=== PATIENT | male | born 1975 | race Caucasian/White ===

== ENCOUNTER 2017-02-12 09:02 | Emergency (ER) | payer MEDICAID ==
[2017-02-12 09:36] LABS: Hematocrit 41.8 % (42.0-52.0); Mean Cell Volume 88.9 fl (78-100); Mean Corpuscular Hemoglobin 31.9 pg (27-31); Mean Corpuscular Hgb Conc 35.9 g/dl (32-36); Mean Platelet Volume 10.6 fl (6.0-9.5); Neutrophil # 10.9 K/mm3 (1.3-6.0); Neutrophil % 76.2 % (42-75.0); Platelet Count 452 K/mm3 (150-450); Red Cell Distribution Width 12.3 % (11.5-14.0); White Blood Count 14.3 K/mm3 (4.0-10.5)
[2017-02-12 09:37] LABS: Urine Bilirubin Negative (NEGATIVE); Urine Blood Negative /ul (NEGATIVE); Urine Ketone Negative (NEGATIVE); Urine Nitrite Negative (NEGATIVE); Urine Protein Negative (NEGATIVE); Urine Specific Gravity 1.015 SP.GR. (1.005-1.030); Urine Urobilinogen Normal (NORMAL); Urine pH 7.5 pH (5.0-7.0)
--- NOTE | 2017-02-12 09:41 | ERNOTE ---
Psychological HPI - Date Date of Service: 02/12/17 - General Chief Complaint: Psychiatric Problem Source: Reports: patient Exam Limitations: Reports: no limitations - Immun/Allergies/Home Medications Allergies/Adverse Reactions: Allergies No Known Allergies Allergy (Verified 02/12/17 09:33) Home Medications: HOME MEDICATIONS Paxil 02/12/17 [Last Taken Unknown] Seroquel 02/12/17 [Last Taken Unknown] Trazodone HCl 02/12/17 [Last Taken Unknown] Vistaril 02/12/17 [Last Taken Unknown] - History of Present Illness Narrative: Patient presents to the ED for feeling depressed and having suicidal thoughts. He relates that Thursday he took a half bottle of pills that were prescription pills of a friend. He does not know what they were. Her states it only put him out for 24 hours but he woke up. He tells me he was seen at [facility] for 2 days after this and discharged. He relates still with SI. He denies repeat overdose since thursday. Still with active SI and placn. No physical complaints. No CP or SOB. No abdominal pain. No fever. Time Seen by Provider: 02/12/17 09:21 Onset/duration: Reports: constant Intent: Reports: suicide Associated Symptoms: Reports: depressed, suicidal thoughts, specific plan. Denies: hostile, hallucinating Prior Treament: Reports: recently seen Review of Systems - Review of Systems Constitutional: Absent: fever Respiratory: Absent: shortness of breath Cardiology: Absent: chest pain Gastrointestinal/Abdominal: Absent: abdominal pain Genitourinary: Absent: dysuria Skin: Absent: rash Neurological: Present: depressed. Absent: weakness Psych: Present: See HPI All Other Systems: All systems neg except as marked - Patient's Past Medical History Patient History - Cardiac/Respiratory: Pneumonia Patient History - Surgical Procedures: Hernia Repair - Social History Living Situations: home Abuse History: Hx of Substance Use Psych History: Psychiatric Hx, Hx of Depression, Hx of Suicide Attempt, Hx of Psychiatric Tx, Current tx/ever been on anti-depressants or anti-anxiety meds Smoking Status: Current every day smoker Have you smoked in the past 12 months: Yes Do you dip or chew tobacco: No Alcohol Use: none Drug Use: cocaine - Immunizations Immunizations Up to Date: Yes Hx Pneumococcal Vaccination: No History of Influenza Vaccine: No Psychological Exam - Exam General Appearance: Present: alert, no apparent distress Head Exam: Present: normal inspection, no evidence of injury Neurological: Present: alert, 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 Absent: good eye contact Eye Exam: Normal inspection: bilateral, PERRL: bilateral Ears, Nose, Throat: Present: normal ENT inspection Neck: Present: normal inspection, nontender Respiratory: Present: no respiratory distress, normal breath sounds, no accessory muscle use, lungs clear Cardiovascular/Chest: Present: regular rate, rhythm, normal peripheral pulses Gastrointestinal/Abdominal: Present: normal bowel sounds, nontender, soft. Absent: tenderness Back Exam: Present: normal range of motion Extremity Exam: Present: normal inspection, no edema Skin Exam: Present: normal color, warm/dry ED Progress - Results and Orders Patient's Lab Results:: I have reviewed the patient's lab results. - Vital Signs Patient's Vital Signs:: I have reviewed the patient's vital signs. Vital Signs: Vital Signs 02/12/17 09:29 Temperature 36.6 C Pulse Rate 98 Respiratory 18 Rate Blood Pressure 133/91 O2 Sat by Pulse 95 Oximetry - EKG EKG: NSR EKG read: Interp. by me EKG Comments: NSR rate 72. No evidence of STEMI. - Progress/Reassessment Chief Complaint: Psychiatric Problem Progress Note-Subjective: 02/12/17 17:23 Nursing arranged transfer with accepting physician not requesting doctor to doctor. Formal transfer paperwork filled out. Patient currently medically stable for transfer to psych unit. 02/12/17 17:25 Patient voluntary and agreeable. Departure Clinical Impression: Suicidal ideation, Depression, UTI (urinary tract infection) - Departure Disposition: Other health care facility Condition: Stable
[2017-02-12 09:46] LABS: Urine Appearance Cloudy; Urine Bacteria 2+; Urine Color Dark Yellow; Urine RBC None Seen /hpf (0-5)
[2017-02-12 09:54] LABS: Urine Barbiturate Negative (NEGATIVE); Urine Benzodiazepines Negative (NEGATIVE); Urine Opiates Negative (NEGATIVE); Urine PCP Negative (NEGATIVE); Urine THC Negative (NEGATIVE)
[2017-02-12 09:58] LABS: ALT 33 U/L (19-67); AST 14 U/L (0-48); Albumin * 3.9 gm/dl (3.4-5.0); Alkaline Phosphatase * 113 U/L (50-170); Anion Gap 17.7 mmol/L (6.8-13.8); BUN/Creatinine Ratio 15.9 (9.0-21.6); Bilirubin, Total 0.8 mg/dL (0.0-1.1); Blood Urea Nitrogen 14 mg/dL (6-23); Ca. Corrected For Albumin 9.1 mg/dL (8.4-10.2); Calcium * 9.3 mg/dL (7.9-10.9); Chloride 102 mmol/L (97-106); Glucose * 106 mg/dL (70-110); Potassium 3.7 mmol/L (3.4-4.6); Salicylate Less than 2.8 mg/dL (2.8-20.0); Sodium 138 mmol/L (132-142); Total Protein 8.6 gm/dL (6.2-8.2)
[2017-02-12 09:58] LABS: Cocaine Ur Positive (NEGATIVE)
[2017-02-12] MEDS ORDERED: CEFUROXIME AXETIL 500 MG TABLET PO ONE (09:58)
[2017-02-12] MEDS ORDERED: CEFUROXIME AXETIL 500 MG TABLET ONE (10:27)
[2017-02-12] MEDS ORDERED: ACETAMINOPHEN 500 MG TABLET PO ONE (10:31)
[2017-02-12] MEDS ORDERED: hydrOXYzine PAMOATE 25 MG CAPSULE ONE (12:16)
[2017-02-12] MEDS ORDERED: hydrOXYzine PAMOATE 25 MG CAPSULE PO ONE ×2 (12:16→17:21)
[2017-02-12 19:54] VITALS: BP 125/69
== END 2017-02-12 18:55 | disposition short-term general hospital (02) ==
LOC: ER 09:02
DX: R45.851 Suicidal ideations (principal); F32.9 Major depressive disorder, single episode, unspecified; N39.0 Urinary tract infection, site not specified; F17.200 Nicotine dependence, unspecified, uncomplicated
CPT/HCPCS: 36415; 80053; 80307; 81001; 84443; 85025; 87086; 93005; 99285; G0480; G0481

== ENCOUNTER 2017-02-19 20:48 | Emergency (ER) | payer MEDICAID ==
[2017-02-19] MEDS ORDERED: hydrOXYzine PAMOATE 25 MG CAPSULE PO ONE (21:48)
[2017-02-19] MEDS ORDERED: hydrOXYzine PAMOATE 25 MG CAPSULE ONE (21:48)
--- NOTE | 2017-02-19 21:55 | ERNOTE ---
Psychological HPI - General Chief Complaint: Psychiatric Problem Source: Reports: patient Exam Limitations: Reports: no limitations - Immun/Allergies/Home Medications Allergies/Adverse Reactions: Allergies No Known Allergies Allergy (Verified 02/12/17 09:33) Home Medications: HOME MEDICATIONS Paxil 02/12/17 [Last Taken Unknown] Seroquel 02/12/17 [Last Taken Unknown] Trazodone HCl 02/12/17 [Last Taken Unknown] Vistaril 02/12/17 [Last Taken Unknown] Venlafaxine HCl [Effexor] 75 mg PO DAILY 02/19/17 [Last Taken Unknown] - History of Present Illness Narrative: Pt states he was transferred to a psych facility in [place] 3 days ago and was released. He states that he tried taking a handful of pills last time and was feeling like he wanted to do that today. He states that on the way to the hospital (walking) he thought about stepping in front of a car. Time Seen by Provider: 02/19/17 21:49 Onset/duration: Reports: constant Intent: Reports: suicide, prior thoughts of suicide Associated Symptoms: Reports: frustrated, made attempt Prior Treament: Reports: recently hospitalized Review of Systems - Review of Systems Constitutional: Absent: recent illness EYE: Absent: vision changes ENT: Present: no symptoms reported Respiratory: Absent: shortness of breath Cardiology: Absent: chest pain Gastrointestinal/Abdominal: Absent: nausea, vomiting Genitourinary: Present: no symptoms reported Musculoskeletal: Present: muscle stiffness Skin: Absent: rash Neurological: Absent: weakness, numbness Endocrine: Absent: excessive sweating Hematologic/Lymphatic: Present: no symptoms reported Psych: Present: See HPI, anxiety, depressed - Patient's Past Medical History Patient History - Medical: Anxiety, Depression Patient History - Cardiac/Respiratory: No pertinent hx, Pneumonia Patient History - Surgical Procedures: Hernia Repair - Social History Abuse History: Hx of Substance Use Psych History: Psychiatric Hx, Hx of Depression, Hx of Suicide Attempt, Hx of Psychiatric Tx, Current tx/ever been on anti-depressants or anti-anxiety meds Smoking Status: Current every day smoker - Immunizations Immunizations Up to Date: Yes Hx Pneumococcal Vaccination: No History of Influenza Vaccine: Yes Psychological Exam - Exam General Appearance: Present: alert, moderate distress, anxious, irritable Head Exam: Present: normal inspection, no evidence of injury Neurological: Present: alert, 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, agitated Thoughts/Hallucinations: Present: no apparent hallucination, obsessive Behavior/Eye Contact/Speech: Present: increased rate of speech Eye Exam: Normal inspection: bilateral, PERRL: bilateral, EOMI: bilateral Neck: Present: normal inspection, nontender, supple Respiratory: Present: no respiratory distress, normal breath sounds, no accessory muscle use, chest nontender, lungs clear Cardiovascular/Chest: Present: regular rate, rhythm, no murmur, normal peripheral pulses Gastrointestinal/Abdominal: Present: normal bowel sounds, nontender Back Exam: Present: normal inspection, normal range of motion Extremity Exam: Present: normal inspection, normal range of motion, no edema Skin Exam: Present: normal color, warm/dry, no cyanosis Lymphatic Exam: Present: no adenopathy ED Progress - Results and Orders Patient's Lab Results:: I have reviewed the patient's lab results. Results and Orders: Laboratory Tests 02/19/17 02/19/17 02/19/17 21:00 21:00 23:05 WBC 10.3 Hgb 14.1 Hct 40.8 L Plt Count 285 Sodium Potassium Chloride Carbon Dioxide Anion Gap BUN Creatinine Random Glucose Calcium Total Bilirubin AST ALT Alkaline Phosphatase Total Protein Albumin TSH Urine Color Yellow Urine Appearance Clear Urine pH 6.0 Ur Specific [place] >=1.030 Urine Protein 15 H Urine Glucose (UA) Negative Urine Ketones Negative Urine Blood 25 H Urine Nitrate Negative Urine Bilirubin 1 H Urine Ictotest Negative Prot Sulfosalicylic Acd Negative Urine Urobilinogen Normal Ur Leukocyte Esterase Negative Urine RBC 10-25 H Urine WBC None seen Ur Epithelial Cells >25 H Calcium Oxalate Crystal Few - 1+ H Urine Bacteria 1+ H Urine Culture Comments No culture indicated Salicylates Urine Opiates Screen Negative Acetaminophen Barbiturate Screen Negative Ur Phencyclidine Scrn Negative Urine Amphetamine Negative U Benzodiazepines Scrn Negative Urine Cocaine Screen Positive H Urine Marijuana (THC) Negative Ethyl Alcohol 02/19/17 23:05 WBC Hgb Hct Plt Count Sodium 142 Potassium 3.6 Chloride 103 Carbon Dioxide 25.8 Anion Gap 16.8 H BUN 14 Creatinine 0.88 Random Glucose 94 Calcium 9.2 Total Bilirubin 0.7 AST 16 ALT 35 Alkaline Phosphatase 98 Total Protein 7.8 Albumin 3.9 TSH 1.420 Urine Color Urine Appearance Urine pH Ur Specific [place] Urine Protein Urine Glucose (UA) Urine Ketones Urine Blood Urine Nitrate Urine Bilirubin Urine Ictotest Prot Sulfosalicylic Acd Urine Urobilinogen Ur Leukocyte Esterase Urine RBC Urine WBC Ur Epithelial Cells Calcium Oxalate Crystal Urine Bacteria Urine Culture Comments Salicylates Less than 2.8 L Urine Opiates Screen Acetaminophen Less than 0.2 L Barbiturate Screen Ur Phencyclidine Scrn Urine Amphetamine U Benzodiazepines Scrn Urine Cocaine Screen Urine Marijuana (THC) Ethyl Alcohol Less than 3.0 - Vital Signs Patient's Vital Signs:: I have reviewed the patient's vital signs. Vital Signs: Vital Signs 02/19/17 20:53 Temperature 36.7 C Pulse Rate 100 Respiratory 18 Rate Blood Pressure 140/85 O2 Sat by Pulse 99 Oximetry - EKG EKG: NSR EKG read: Interp. by me - Progress/Reassessment Chief Complaint: Psychiatric Problem Progress:: Improved Progress Note-Subjective: 02/20/17 07:47 Pt has been accepted to [facility]. Waiting for transportation. Pt slept most of the night and only had a few requests for food. Not as irritable as upon admission. Departure Clinical Impression: Suicidal ideation Depression Qualifiers: Depression Type: major depressive disorder Major depression recurrence: recurrent Active/Remission status: currently active Major depression episode severity: moderate Qualified Code(s): F33.1 - Major depressive disorder, recurrent, moderate - Departure Disposition: Other health care facility Condition: Fair
[2017-02-19 22:10] VITALS: BP 93/64
[2017-02-19] MEDS ORDERED: traZODone HCL 50 MG TABLET PO ONE (22:30)
[2017-02-19 23:08] LABS: Hematocrit 40.8 % (42.0-52.0); Hemoglobin 14.1 gm/dL (13.5-18.0); Mean Cell Volume 89.5 fl (78-100); Mean Corpuscular Hemoglobin 30.9 pg (27-31); Mean Corpuscular Hgb Conc 34.6 g/dl (32-36); Mean Platelet Volume 11.4 fl (6.0-9.5); Neutrophil # 5.1 K/mm3 (1.3-6.0); Neutrophil % 49.3 % (42-75.0); Platelet Count 285 K/mm3 (150-450); Red Blood Count 4.56 M/mm3 (4.7-6.0); Red Cell Distribution Width 12.6 % (11.5-14.0); White Blood Count 10.3 K/mm3 (4.0-10.5)
[2017-02-19 23:17] LABS: Urine Bilirubin 1 mg/dl (NEGATIVE); Urine Blood 25 /ul (NEGATIVE); Urine Ketone Negative (NEGATIVE); Urine Nitrite Negative (NEGATIVE); Urine Protein 15 mg/dL (NEGATIVE); Urine Specific Gravity >=1.030 SP.GR. (1.005-1.030); Urine Urobilinogen Normal (NORMAL)
[2017-02-19 23:27] LABS: Urine Appearance Clear; Urine Bacteria 1+; Urine Color Yellow; Urine WBC None Seen /hpf (0-5)
[2017-02-19 23:30] LABS: ALT 35 U/L (19-67); AST 16 U/L (0-48); Albumin * 3.9 gm/dl (3.4-5.0); Alkaline Phosphatase * 98 U/L (50-170); Anion Gap 16.8 mmol/L (6.8-13.8); BUN/Creatinine Ratio 15.9 (9.0-21.6); Bilirubin, Total 0.7 mg/dL (0.0-1.1); Blood Urea Nitrogen 14 mg/dL (6-23); Calcium * 9.2 mg/dL (7.9-10.9); Carbon Dioxide 25.8 mmol/L (24-32.6); Chloride 103 mmol/L (97-106); Glucose * 94 mg/dL (70-110); Potassium 3.6 mmol/L (3.4-4.6); Salicylate Less than 2.8 mg/dL (2.8-20.0); Sodium 142 mmol/L (132-142); Total Protein 7.8 gm/dL (6.2-8.2)
[2017-02-19 23:32] LABS: Urine Barbiturate Negative (NEGATIVE); Urine Benzodiazepines Negative (NEGATIVE); Urine Opiates Negative (NEGATIVE); Urine PCP Negative (NEGATIVE); Urine THC Negative (NEGATIVE)
[2017-02-19 23:33] LABS: Cocaine Ur Positive (NEGATIVE)
== END 2017-02-20 10:15 | disposition short-term general hospital (02) ==
LOC: ER 20:48
DX: R45.851 Suicidal ideations (principal); F33.1 Major depressive disorder, recurrent, moderate; F17.200 Nicotine dependence, unspecified, uncomplicated
CPT/HCPCS: 36415; 80053; 80307; 81001; 84443; 85025; 93005; 99285; G0480; G0481

== ENCOUNTER 2017-03-03 18:30 | Emergency (ER) | payer MEDICAID ==
--- NOTE | 2017-03-03 19:19 | ERNOTE ---
<Kana Alexander - Last Filed: 03/03/17 19:44> Psychological HPI - General Chief Complaint: Psychiatric Problem Source: Reports: patient Exam Limitations: Reports: no limitations - Immun/Allergies/Home Medications Allergies/Adverse Reactions: Allergies No Known Allergies Allergy (Verified 03/03/17 19:02) Home Medications: HOME MEDICATIONS Paxil 25 mg PO DAILY 02/12/17 [Last Taken Unknown] Seroquel 100 mg PO HS 02/12/17 [Last Taken Unknown] Trazodone HCl 100 mg PO HS 02/12/17 [Last Taken Unknown] Vistaril 25 mg PO DAILY PRN 02/12/17 [Last Taken Unknown] Venlafaxine HCl [Effexor] 75 mg PO DAILY 02/19/17 [Last Taken Unknown] - History of Present Illness Narrative: Patient is somewhat cryptic about the exact stressors that are going on in his life, though he does state that he misses his , and he admits to trying to step in front of a car tonight while he was leaving the restaurant in [place]. He still states that he is both depressed and suicidal at this juncture and admits to having relapsed back on to cocaine approximately 4 days ago. Time Seen by Provider: 03/03/17 19:02 Arrived by: Reports: private car Onset/duration: Reports: intermittent Intent: Reports: suicide, prior thoughts of suicide Mechanism: Reports: other - step in front of a moving vehicle Situational Problems: Reports: spouse Associated Symptoms: Reports: suicidal thoughts, specific plan Prior Treament: Reports: recently hospitalized Review of Systems - Review of Systems Constitutional: Present: See HPI EYE: Present: no symptoms reported ENT: Present: no symptoms reported Respiratory: Present: no symptoms reported Cardiology: Present: no symptoms reported Gastrointestinal/Abdominal: Present: no symptoms reported Genitourinary: Present: no symptoms reported Musculoskeletal: Present: no symptoms reported Skin: Present: no symptoms reported Neurological: Present: no symptoms reported Endocrine: Present: no symptoms reported Hematologic/Lymphatic: Present: no symptoms reported Psych: Present: depressed, emotional problems, other - still indicating suicidal ideation - Patient's Past Medical History Patient History - Medical: Anxiety, Depression, Other - previous hospitalization for suicidal ideation Patient History - Cardiac/Respiratory: Pneumonia Patient History - Cancer: No Hx of Cancer Patient History - Surgical Procedures: Other, Hernia Repair Patient History - Other: None - Social History Living Situations: home Abuse History: Hx of Substance Use - cocaine per the patient Psych History: Psychiatric Hx, Hx of Depression, Hx of Suicide Attempt, Hx of Psychiatric Tx, Current tx/ever been on anti-depressants or anti-anxiety meds Smoking Status: Current every day smoker Alcohol Use: none Drug Use: cocaine - Immunizations Immunizations Up to Date: Yes Hx Pneumococcal Vaccination: No History of Influenza Vaccine: No Psychological Exam - Exam General Appearance: Present: wd/wn, alert, moderate distress Head Exam: Present: normal inspection, no evidence of injury Neurological: Present: agitated Thoughts/Hallucinations: Present: obsessive Behavior/Eye Contact/Speech: Present: threatening eye contact, decreased rate of speech, belligerent ENT Exam normal except (see below): Yes Ears, Nose, Throat: Present: normal ENT inspection Neck: Present: normal inspection, nontender Respiratory: Present: no respiratory distress, normal breath sounds, no accessory muscle use, chest nontender, lungs clear Cardiovascular/Chest: Present: regular rate, rhythm, no murmur, normal peripheral pulses Gastrointestinal/Abdominal: Present: normal bowel sounds, nontender, nondistended, soft Rectal Exam: Present: deferred Male Genitals Exam: Present: deferred Back Exam: Present: normal inspection, normal range of motion Extremity Exam: Present: normal inspection, normal range of motion Skin Exam: Present: normal color, warm/dry ED Progress - Vital Signs Patient's Vital Signs:: I have reviewed the patient's vital signs. Vital Signs: Vital Signs 03/03/17 18:58 Temperature 36.8 C Pulse Rate 85 Respiratory 17 Rate Blood Pressure 110/70 O2 Sat by Pulse 98 Oximetry - Progress/Reassessment Chief Complaint: Psychiatric Problem - Transfer of Care Physician Sign Out: Kana Alexander Receiving Physician: Holly Goodrich Departure Clinical Impression: Suicidal ideation Depression Qualifiers: Depression Type: unspecified Qualified Code(s): F32.9 - Major depressive disorder, single episode, unspecified - Departure Disposition: Other health care facility Condition: Fair <Holly Goodrich - Last Filed: 03/04/17 03:32> ED Progress - Results and Orders Patient's Lab Results:: I have reviewed the patient's lab results. - Vital Signs Patient's Vital Signs:: I have reviewed the patient's vital signs. Vital Signs: Vital Signs 03/03/17 03/03/17 18:58 19:39 Temperature 36.8 C 36.8 C Pulse Rate 85 85 Respiratory 17 17 Rate Blood Pressure 110/70 110/70 O2 Sat by Pulse 98 98 Oximetry - EKG EKG: NSR, no ST T wave changes, unchanged from - 02/20/17, other - no acute changes EKG read: Interp. by me - Progress/Reassessment Progress Note-Subjective: 03/03/17 20:55 Patient resting calmly in bed, eating sandwich, states that he is still suicidal and would like to get admitted to a psychiatric hospital 03/04/17 02:44 [facility] in [place] has bed available, requesting doctor to doctor report, called number provided, connected with answering service, left call back number 03/04/17 03:28 called [facility] again, discussed with Dr Howard, accepted patient
[2017-03-03 19:28] LABS: Hematocrit 40.9 % (42.0-52.0); Hemoglobin 14.5 gm/dL (13.5-18.0); Mean Cell Volume 88.9 fl (78-100); Mean Corpuscular Hemoglobin 31.5 pg (27-31); Mean Corpuscular Hgb Conc 35.5 g/dl (32-36); Mean Platelet Volume 11.1 fl (6.0-9.5); Neutrophil # 6.5 K/mm3 (1.3-6.0); Neutrophil % 60.7 % (42-75.0); Platelet Count 295 K/mm3 (150-450); Red Cell Distribution Width 12.7 % (11.5-14.0); White Blood Count 10.6 K/mm3 (4.0-10.5)
[2017-03-03 19:41] LABS: ALT 36 U/L (19-67); AST 27 U/L (0-48); Albumin * 3.8 gm/dl (3.4-5.0); Alkaline Phosphatase * 87 U/L (50-170); Anion Gap 13.9 mmol/L (6.8-13.8); BUN/Creatinine Ratio 10.2 (9.0-21.6); Bilirubin, Total 0.8 mg/dL (0.0-1.1); Blood Urea Nitrogen 9 mg/dL (6-23); Ca. Corrected For Albumin 8.9 mg/dL (8.4-10.2); Calcium * 9.1 mg/dL (7.9-10.9); Carbon Dioxide 25.6 mmol/L (24-32.6); Chloride 103 mmol/L (97-106); Glucose * 89 mg/dL (70-110); Potassium 3.5 mmol/L (3.4-4.6); Salicylate Less than 2.8 mg/dL (2.8-20.0); Sodium 139 mmol/L (132-142)
[2017-03-03 20:51] LABS: Urine Bilirubin Negative (NEGATIVE); Urine Blood 25 /ul (NEGATIVE); Urine Ketone Negative (NEGATIVE); Urine Nitrite Negative (NEGATIVE); Urine Protein Negative (NEGATIVE); Urine Urobilinogen Normal (NORMAL)
[2017-03-03 21:07] LABS: Urine Appearance Cloudy; Urine Bacteria None Seen; Urine Color Orange; Urine RBC 0-5 /hpf (0-5); Urine WBC >50 /hpf (0-5)
[2017-03-03 21:15] LABS: Urine Barbiturate Negative (NEGATIVE); Urine Benzodiazepines Negative (NEGATIVE); Urine Opiates Negative (NEGATIVE); Urine PCP Negative (NEGATIVE); Urine THC Negative (NEGATIVE)
[2017-03-03 21:17] LABS: Cocaine Ur Positive (NEGATIVE)
[2017-03-03] MEDS ORDERED: QUEtiapine FUMARATE 100 MG TABLET ONE (22:41)
[2017-03-03] MEDS ORDERED: traZODone HCL 50 MG TABLET ONE (22:41)
[2017-03-03] MEDS ORDERED: QUEtiapine FUMARATE 100 MG TABLET PO SCH (23:00)
[2017-03-03] MEDS ORDERED: traZODone HCL 50 MG TABLET PO SCH (23:00)
[2017-03-04 03:50] VITALS: BP 99/71
== END 2017-03-04 04:30 | disposition short-term general hospital (02) ==
LOC: ER 18:30
DX: R45.851 Suicidal ideations (principal); F32.9 Major depressive disorder, single episode, unspecified; F17.200 Nicotine dependence, unspecified, uncomplicated
CPT/HCPCS: 36415; 80053; 80307; 81001; 85025; 87086; 93005; 99285; G0480; G0481

== ENCOUNTER 2017-03-12 00:10 | Emergency (ER) | payer MEDICAID ==
--- NOTE | 2017-03-12 00:55 | ERNOTE ---
Psychological HPI - General Chief Complaint: Psychiatric Problem Source: Reports: patient Exam Limitations: Reports: no limitations - Immun/Allergies/Home Medications Allergies/Adverse Reactions: Allergies No Known Allergies Allergy (Verified 03/12/17 00:30) Home Medications: HOME MEDICATIONS Paxil 25 mg PO DAILY 02/12/17 [Last Taken Unknown] Seroquel 100 mg PO HS 02/12/17 [Last Taken Unknown] Trazodone HCl 100 mg PO HS 02/12/17 [Last Taken Unknown] Vistaril 25 mg PO DAILY PRN 02/12/17 [Last Taken Unknown] Venlafaxine HCl [Effexor] 75 mg PO DAILY 02/19/17 [Last Taken Unknown] - History of Present Illness Narrative: Pt states he has been depressed for 2 months. I saw him and transferred him to an in patient psych facility approx 3 weeks ago. Pt states that on top of this depression his grandmother this morning and his announced she was leaving him today. He states he was going to take all his medications and kill himself but instead flushed them down the toilet and came to the ED. Time Seen by Provider: 03/12/17 00:45 Arrived by: Reports: private car Onset/duration: Reports: sudden onset Intent: Reports: suicide, prior thoughts of suicide Mechanism: Reports: overdose Situational Problems: Reports: spouse, parents Associated Symptoms: Reports: other - anxiety Prior Treament: Reports: recently seen, treated by physician - multiple trips to this ED, recently hospitalized - at psych facilities Review of Systems - Review of Systems Constitutional: Absent: recent illness EYE: Present: no symptoms reported ENT: Present: no symptoms reported Respiratory: Absent: shortness of breath Cardiology: Absent: chest pain Gastrointestinal/Abdominal: Present: no symptoms reported Genitourinary: Present: no symptoms reported Musculoskeletal: Present: no symptoms reported Skin: Present: no symptoms reported Neurological: Present: no symptoms reported Endocrine: Absent: excessive sweating Hematologic/Lymphatic: Present: no symptoms reported Psych: Present: See HPI, anxiety - Patient's Past Medical History Patient History - Medical: Anxiety, Depression, Other Patient History - Cardiac/Respiratory: Pneumonia Patient History - Cancer: No Hx of Cancer Patient History - Surgical Procedures: Other, Hernia Repair Patient History - Other: None - Social History Living Situations: home Abuse History: Hx of Substance Use Psych History: Psychiatric Hx, Hx of Depression, Hx of Suicide Attempt, Hx of Psychiatric Tx, Current tx/ever been on anti-depressants or anti-anxiety meds Smoking Status: Current every day smoker Drug Use: cocaine - Immunizations Immunizations Up to Date: Yes Hx Pneumococcal Vaccination: No History of Influenza Vaccine: Yes Psychological Exam - Exam General Appearance: Present: wd/wn, alert, no apparent distress Head Exam: Present: normal inspection, no evidence of injury Neurological: Present: alert, calm, oriented x 3, anxious, depressed affect Thoughts/Hallucinations: Present: normal thought pattern, no apparent hallucination Behavior/Eye Contact/Speech: Present: cooperative, avoids eye contact, decreased rate of speech Eye Exam: Normal inspection: bilateral Ears, Nose, Throat: Present: normal ENT inspection Neck: Present: normal inspection, nontender Respiratory: Present: no respiratory distress, no accessory muscle use Back Exam: Present: normal inspection, normal range of motion, no vertebral tenderness Extremity Exam: Present: normal inspection, normal range of motion, no edema Skin Exam: Present: normal color, warm/dry, no cyanosis Lymphatic Exam: Present: no adenopathy ED Progress - Results and Orders Patient's Lab Results:: I have reviewed the patient's lab results. Results and Orders: Laboratory Tests 03/12/17 03/12/17 03/12/17 00:55 00:55 00:55 WBC 9.1 Hgb 13.7 Hct 39.0 L Plt Count 287 Sodium 141 Potassium 3.4 Chloride 104 Carbon Dioxide 27.1 BUN 12 Creatinine 0.85 Random Glucose 93 Calcium 8.7 Total Bilirubin 0.7 AST 15 ALT 19 Alkaline Phosphatase 79 Total Protein 7.4 Albumin 3.8 TSH 1.588 Urine Color Yellow Urine Appearance Cloudy Urine pH 6.0 Ur Specific [place] >=1.030 Urine Protein Negative Urine Glucose (UA) Negative Urine Ketones Negative Urine Blood 25 H Urine Nitrate Negative Urine Bilirubin Negative Urine Urobilinogen Normal Ur Leukocyte Esterase 100 H Urine RBC 5-10 H Urine WBC 10-25 H Ur Epithelial Cells 5-10 H Urine Bacteria 1+ H Urine Culture Comments Culture to follow Salicylates Less than 2.8 L Urine Opiates Screen Acetaminophen Less than 0.2 L Barbiturate Screen Ur Phencyclidine Scrn Urine Amphetamine U Benzodiazepines Scrn Urine Cocaine Screen Urine Marijuana (THC) Ethyl Alcohol Less than 3.0 03/12/17 00:55 WBC Hgb Hct Plt Count Sodium Potassium Chloride Carbon Dioxide BUN Creatinine Random Glucose Calcium Total Bilirubin AST ALT Alkaline Phosphatase Total Protein Albumin TSH Urine Color Urine Appearance Urine pH Ur Specific [place] Urine Protein Urine Glucose (UA) Urine Ketones Urine Blood Urine Nitrate Urine Bilirubin Urine Urobilinogen Ur Leukocyte Esterase Urine RBC Urine WBC Ur Epithelial Cells Urine Bacteria Urine Culture Comments Salicylates Urine Opiates Screen Negative Acetaminophen Barbiturate Screen Negative Ur Phencyclidine Scrn Negative Urine Amphetamine Negative U Benzodiazepines Scrn Negative Urine Cocaine Screen Positive H Urine Marijuana (THC) Negative Ethyl Alcohol - Vital Signs Patient's Vital Signs:: I have reviewed the patient's vital signs. Vital Signs: Vital Signs 03/12/17 00:21 Temperature 36.9 C Pulse Rate 84 Respiratory 18 Rate Blood Pressure 118/72 O2 Sat by Pulse 97 Oximetry - EKG EKG: NSR, other - possible old DE. EKG read: Interp. by me - Progress/Reassessment Chief Complaint: Psychiatric Problem Progress Note-Subjective: Pt was accepted by Dr. Gil at [facility]. Pt transferred without difficulty and in no acute distress Departure Clinical Impression: Suicidal ideation Depression Qualifiers: Depression Type: major depressive disorder Major depression recurrence: recurrent Active/Remission status: currently active Major depression episode severity: moderate Qualified Code(s): F33.1 - Major depressive disorder, recurrent, moderate - Departure Disposition: Transferred to other hospital Condition: Good
[2017-03-12 01:04] LABS: Hemoglobin 13.7 gm/dL (13.5-18.0); Mean Cell Volume 90.1 fl (78-100); Mean Corpuscular Hemoglobin 31.6 pg (27-31); Mean Corpuscular Hgb Conc 35.1 g/dl (32-36); Mean Platelet Volume 11.4 fl (6.0-9.5); Neutrophil # 4.4 K/mm3 (1.3-6.0); Neutrophil % 48.2 % (42-75.0); Platelet Count 287 K/mm3 (150-450); Red Blood Count 4.33 M/mm3 (4.7-6.0); Red Cell Distribution Width 12.5 % (11.5-14.0); White Blood Count 9.1 K/mm3 (4.0-10.5)
[2017-03-12 01:07] LABS: Urine Bilirubin Negative (NEGATIVE); Urine Blood 25 /ul (NEGATIVE); Urine Color Yellow; Urine Ketone Negative (NEGATIVE); Urine Nitrite Negative (NEGATIVE); Urine Protein Negative (NEGATIVE); Urine Specific Gravity >=1.030 SP.GR. (1.005-1.030); Urine Urobilinogen Normal (NORMAL)
[2017-03-12 01:08] LABS: Urine Appearance Cloudy; Urine Bacteria 1+
[2017-03-12 01:20] LABS: Urine Barbiturate Negative (NEGATIVE); Urine Benzodiazepines Negative (NEGATIVE); Urine Opiates Negative (NEGATIVE); Urine PCP Negative (NEGATIVE); Urine THC Negative (NEGATIVE)
[2017-03-12 01:22] LABS: Cocaine Ur Positive (NEGATIVE)
[2017-03-12 01:25] LABS: ALT 19 U/L (19-67); AST 15 U/L (0-48); Albumin * 3.8 gm/dl (3.4-5.0); Alkaline Phosphatase * 79 U/L (50-170); Anion Gap 13.3 mmol/L (6.8-13.8); BUN/Creatinine Ratio 14.1 (9.0-21.6); Bilirubin, Total 0.7 mg/dL (0.0-1.1); Blood Urea Nitrogen 12 mg/dL (6-23); Ca. Corrected For Albumin 8.5 mg/dL (8.4-10.2); Calcium * 8.7 mg/dL (7.9-10.9); Carbon Dioxide 27.1 mmol/L (24-32.6); Chloride 104 mmol/L (97-106); Glucose * 93 mg/dL (70-110); Potassium 3.4 mmol/L (3.4-4.6); Salicylate Less than 2.8 mg/dL (2.8-20.0); Sodium 141 mmol/L (132-142); TSH * 1.588 uIU/mL (0.358-3.74); Total Protein 7.4 gm/dL (6.2-8.2)
[2017-03-12] MEDS ORDERED: hydrOXYzine PAMOATE 25 MG CAPSULE PO ONE (03:11)
[2017-03-12] MEDS ORDERED: hydrOXYzine PAMOATE 25 MG CAPSULE ONE ×2 (03:15→04:36)
[2017-03-12 07:26] VITALS: BP 120/74
== END 2017-03-12 08:20 | disposition short-term general hospital (02) ==
LOC: ER 00:10
DX: F33.1 Major depressive disorder, recurrent, moderate (principal); R45.851 Suicidal ideations; F17.200 Nicotine dependence, unspecified, uncomplicated
CPT/HCPCS: 36415; 80053; 80307; 81001; 84443; 85025; 87086; 93005; 99285; G0480; G0481

== ENCOUNTER 2017-03-21 21:48 | Emergency (ER) | payer MEDICAID ==
[2017-03-21 22:19] LABS: Hemoglobin 14.7 gm/dL (13.5-18.0); Mean Cell Volume 91.3 fl (78-100); Mean Corpuscular Hemoglobin 31.2 pg (27-31); Mean Corpuscular Hgb Conc 34.2 g/dl (32-36); Mean Platelet Volume 10.6 fl (6.0-9.5); Neutrophil # 6.8 K/mm3 (1.3-6.0); Neutrophil % 63.8 % (42-75.0); Platelet Count 322 K/mm3 (150-450); Red Blood Count 4.71 M/mm3 (4.7-6.0); Red Cell Distribution Width 13.3 % (11.5-14.0); White Blood Count 10.6 K/mm3 (4.0-10.5)
[2017-03-21 22:39] LABS: Urine Bilirubin Negative (NEGATIVE); Urine Blood Negative /ul (NEGATIVE); Urine Ketone Negative (NEGATIVE); Urine Nitrite Negative (NEGATIVE); Urine Protein Negative (NEGATIVE); Urine Urobilinogen Normal (NORMAL)
[2017-03-21 22:42] LABS: ALT 36 U/L (19-67); AST 17 U/L (0-48); Albumin * 4.2 gm/dl (3.4-5.0); Alkaline Phosphatase * 87 U/L (50-170); Anion Gap 14.3 mmol/L (6.8-13.8); Bilirubin, Total 0.6 mg/dL (0.0-1.1); Blood Urea Nitrogen 15 mg/dL (6-23); Ca. Corrected For Albumin 8.6 mg/dL (8.4-10.2); Calcium * 9.1 mg/dL (7.9-10.9); Carbon Dioxide 27.5 mmol/L (24-32.6); Chloride 103 mmol/L (97-106); Glucose * 104 mg/dL (70-110); Potassium 3.8 mmol/L (3.4-4.6); Salicylate Less than 2.8 mg/dL (2.8-20.0); Sodium 141 mmol/L (132-142); TSH * 1.978 uIU/mL (0.358-3.74); Total Protein 8.3 gm/dL (6.2-8.2)
[2017-03-21 22:48] LABS: Urine Appearance Clear; Urine Bacteria 1+; Urine Color Yellow; Urine RBC None Seen /hpf (0-5)
[2017-03-21 22:49] LABS: Urine Mucus Few - 1+
[2017-03-21 22:51] LABS: Urine Barbiturate Negative (NEGATIVE); Urine Benzodiazepines Negative (NEGATIVE); Urine Opiates Negative (NEGATIVE); Urine PCP Negative (NEGATIVE); Urine THC Negative (NEGATIVE)
[2017-03-21 22:52] LABS: Cocaine Ur Positive (NEGATIVE)
--- NOTE | 2017-03-21 23:12 | ERNOTE ---
Psychological HPI - Date Date of Service: 03/21/17 - General Chief Complaint: Psychiatric Problem Source: Reports: patient Exam Limitations: Reports: no limitations - Immun/Allergies/Home Medications Allergies/Adverse Reactions: Allergies No Known Allergies Allergy (Verified 03/12/17 00:30) Home Medications: HOME MEDICATIONS Paxil 25 mg PO DAILY 02/12/17 [Last Taken Unknown] Seroquel 100 mg PO HS 02/12/17 [Last Taken Unknown] Trazodone HCl 100 mg PO HS 02/12/17 [Last Taken Unknown] Vistaril 25 mg PO DAILY PRN 02/12/17 [Last Taken Unknown] Venlafaxine HCl [Effexor] 75 mg PO DAILY 02/19/17 [Last Taken Unknown] - History of Present Illness Narrative: patient recently dismissed from [facility] for suicidal ideation has smoked cocaine four days ago and shelby feels suicidal and wants yo go into inpatient treatment Time Seen by Provider: 03/21/17 22:06 Arrived by: Reports: private car Onset/duration: Reports: intermittent, constant Intent: Reports: suicide, prior thoughts of suicide, wants to escape Mechanism: Reports: other - patient has made no act but would attempt to overdose Situational Problems: Reports: other - patient wont say Associated Symptoms: Reports: depressed, frustrated, suicidal thoughts, specific plan Prior Treament: Reports: recently seen, treated by physician, recently hospitalized Review of Systems - Narrative Narrative: patient has long hx of depression and suidal ideation - Review of Systems Constitutional: Present: See HPI, weakness, fatigue, malaise EYE: Present: no symptoms reported ENT: Present: no symptoms reported Respiratory: Present: no symptoms reported Cardiology: Present: no symptoms reported Gastrointestinal/Abdominal: Present: no symptoms reported Genitourinary: Present: no symptoms reported Musculoskeletal: Present: no symptoms reported Skin: Present: no symptoms reported Neurological: Present: no symptoms reported Endocrine: Present: no symptoms reported Hematologic/Lymphatic: Present: no symptoms reported Psych: Present: See HPI, anxiety, depressed, emotional problems All Other Systems: All systems neg except as marked - Narrative Narrative: past hx of depression - Patient's Past Medical History Patient History - Medical: Anxiety, Depression, Other Patient History - Cardiac/Respiratory: Pneumonia Patient History - Cancer: No Hx of Cancer Patient History - Surgical Procedures: Other, Hernia Repair Patient History - Other: None - Family History Family History:: no untoward family reactions to anesthesia, no familial bleeding tendencies, no family history of clotting disorders, no family history of premature - Family History Mother Family History - Medical: , Other Family History - Cardiac/Respiratory: No pertinent hx Family History - Cancer: No pertinent family hx - Social History Living Situations: spouse Abuse History: Hx of Substance Use Psych History: Psychiatric Hx, Hx of Depression, Hx of Suicide Attempt, Hx of Psychiatric Tx, Current tx/ever been on anti-depressants or anti-anxiety meds Smoking Status: Current every day smoker Have you smoked in the past 12 months: Yes Do you dip or chew tobacco: No Patient requests Smoking Cessation Consult: No Initiate information on Smoking Cessation: No Alcohol Use: sober Drug Use: cocaine - Immunizations Immunizations Up to Date: Yes Hx Pneumococcal Vaccination: Yes History of Influenza Vaccine: Yes Psychological Exam - Exam Narrative: patient alert and depressed General Appearance: Present: alert, no apparent distress Head Exam: Present: normal inspection, no evidence of injury Neurological: Present: alert, agitated, anxious Thoughts/Hallucinations: Present: delusions Behavior/Eye Contact/Speech: Present: cooperative, good eye contact, normal speech, avoids eye contact ENT Exam normal except (see below): Yes Eye Exam: Normal inspection: bilateral, PERRL: bilateral, EOMI: bilateral Ears, Nose, Throat: Present: normal ENT inspection, normal pharynx Neck: Present: normal inspection, nontender Respiratory: Present: no respiratory distress, normal breath sounds, no accessory muscle use, chest nontender, lungs clear Cardiovascular/Chest: Present: regular rate, rhythm, no murmur, normal peripheral pulses Peripheral Pulses: Carotid (R): Normal, Carotid (L): Normal, Radial (R): Normal , Radial (L): Normal, Brachial (R): Normal, Brachial (L): Normal, Femoral (R): Normal, Femoral (L): Normal, Posterior tib (R): Normal, Posterior tib (L): Normal, Dorsalis-pedis (R): Normal, Dorsalis-pedis (L): Normal Gastrointestinal/Abdominal: Present: normal bowel sounds, nontender, nondistended, soft, no organomegaly Back Exam: Present: normal inspection, normal range of motion, no CVA tenderness , no vertebral tenderness Extremity Exam: Present: normal inspection, non-tender, normal range of motion, no edema Deep Tendon Reflexes: Bicep (R): Normal, Bicep (L): Normal, Tricep (R): Normal, Tricep (L): Normal, Knee (R): Normal, Knee (L): Normal, Ankle (R): Normal Skin Exam: Present: normal color, warm/dry, no cyanosis Lymphatic Exam: Present: no adenopathy ED Progress - Date and Time Seen: Date and Time: 03/21/17 23:10 patient condition unchanged, discussed labs with patient,patient willing to go voluntary - Results and Orders Patient's Lab Results:: I have reviewed the patient's lab results. - Vital Signs Vital Signs: Vital Signs 03/21/17 21:53 Temperature 37.4 C Pulse Rate 89 Respiratory 18 Rate Blood Pressure 125/62 O2 Sat by Pulse 97 Oximetry - EKG EKG: NSR - Progress/Reassessment Chief Complaint: Psychiatric Problem Progress:: Unchanged - Transfer of Care Expected Disposition: Transfer Plan - Plan Plan: plan to transfer patient for inpatient trearment Departure Clinical Impression: Suicidal ideations, Depression - Departure Disposition: Other health care facility Condition: Fair Instructions: Suicidal Feelings: How to Help Yourself
[2017-03-22] MEDS ORDERED: hydrOXYzine PAMOATE 25 MG CAPSULE PO ONE (03:51)
[2017-03-22] MEDS ORDERED: hydrOXYzine PAMOATE 25 MG CAPSULE ONE (03:54)
[2017-03-22 07:09] VITALS: BP 112/54
== END 2017-03-22 09:24 | disposition short-term general hospital (02) ==
LOC: ER 21:48
DX: R45.851 Suicidal ideations (principal); F32.9 Major depressive disorder, single episode, unspecified; F17.200 Nicotine dependence, unspecified, uncomplicated
CPT/HCPCS: 36415; 80053; 80307; 81001; 84443; 85025; 87086; 93005; 99285; G0480; G0481